=== PATIENT | female | born 1940 | race Two or more races ===

== ENCOUNTER 2017-08-28 14:34 | Emergency (ER) ==
[2017-08-28 14:50] VITALS: BP 141/70; TEMP 97.4; BMI 27.4
--- NOTE | 2017-08-28 15:35 | CT ---
EXAM: CT of the cervical spine without contrast History: Neck trauma. Technique: Multiplanar CT images through the cervical spine were obtained without the administration of IV contrast Findings: The visualized upper lungs are free of consolidation. Atherosclerotic vascular calcificati ons. Mild diffuse thyroid enlargement. No acute fracture or subluxation of the cervical spine. No prevertebral soft tissue swelling. Prede ntal space is not widened. Mild multilevel degenerative disc space narrowing with a few small osteop hytes. Bony spinal canal is not significantly compromised. Impression: No acute osseous abnormality of the cervical spine
--- NOTE | 2017-08-28 15:39 | CT ---
Exam: CT of the maxillofacial bones without intravenous contrast. Comparison: CT brain performed 12/27/2012. Reason for exam: Fall with contusion of the right orbit. FINDINGS: No displaced facial fractures are seen. The frontal, maxillary, and sphenoid sinuses are unopacified. There is minimal mucosal thickening in the ethmoid sinuses. The imaged osseous structu res appear diffusely demineralized. No inflammatory changes are seen in the intra coronal spaces. D egenerative disease is seen in the cervical spine. There is poor dentition with apical capping seen in multiple teeth. Impression: 1. No displaced facial fractures are seen. 2. Poor dentition. 3. Minimal mucosal thickening in the ethmoid sinuses. Report faxed at [phone] hours on 08/28/2017
--- NOTE | 2017-08-28 15:41 | ED.PDOC ---
General ED Provider: Dr. TERE DIOP Chief Complaint: Eye Problem Stated Complaint: RIGHT ORBIT INJURY Time Seen by Physician: 15:00 (FALL THIS AM) Mode of Arrival: Walk-In Information Source: Patient Exam Limitations: No limitations Primary Care Provider: HANS WEEMS Nursing and Triage Documentation Reviewed and Agree: Yes (SEEN WITH KIAH AT ALL TIMES ) Trauma/Injury Complaint Exam - Facial Injury Complaint/Exam Location of Pain: Reports: Right (ORBIT, FACE) Mechanism of Injury: Reports: Trauma (BLUNT FACE ) Onset/Duration: THIS MORNINIG Symptoms Are: Still present Onset of Pain: Reports: Hours Initial Severity: Moderate Current Severity: Moderate Location: Reports: Discrete Character: Reports: Aching Alleviating: Reports: Rest Aggravating: Reports: None Associated Signs and Symptoms: Denies: Swelling, Redness, Bruising, Numbness, Tingling, Fever, Polymyalgia, Weight loss, Visual defects, Tinnitus, Headache, Loss of consciousness Facial Findings: Present: Ecchymosis (SEE PHOTOS), Abrasion Differential Diagnoses: Abrasion (UPPER LID RIGHT) Review of Systems - Review Of Systems Constitutional: Reports: No symptoms Eyes: Reports: Other (ORBITAL CONTUSION) Ears, Nose, Mouth, Throat: Reports: No symptoms Respiratory: Reports: No symptoms Cardiac: Reports: No symptoms GI: Reports: No symptoms : Reports: No symptoms Musculoskeletal: Reports: No symptoms Skin: Reports: No symptoms Neurological: Reports: No symptoms Endocrine: Reports: No symptoms Hematologic/Lymphatic: Reports: No symptoms All Other Systems: Reviewed and Negative Past Medical History - Past Medical History Previously Healthy: No Endocrine: Reports: DM 2 Cardiovascular: Reports: Hypertension Respiratory: Reports: None Hematological: Reports: Anemia Gastrointestinal: Reports: None Genitourinary: Reports: CKD Neuro/Psych: Reports: CVA, Dementia, Parkinson's Musculoskeletal: Reports: Arthritis Cancer: Reports: None Last Menstrual Period: none - Surgical History General Surgical History: Reports: None - Family History Family History: Reports: None - Social History Smoking Status: Never smoker Hx Substance Use: No Alcohol Screening: None - Immunizations Tetanus Shot up to Date: No Physical Exam - Physical Exam Appearance: Well-appearing, No pain distress, Well-nourished Eyes: OLIVIA, EOMI, Conjunctiva clear ENT: Ears normal, Nose normal, Oropharynx normal Respiratory: Airway patent, Breath sounds clear, Breath sounds equal, Respirations nonlabored Cardiovascular: RRR, Pulses normal, No rub, No murmur GI/: Soft, Nontender, No masses, Bowel sounds normal, No Organomegaly Musculoskeletal: Normal strength, ROM intact, No edema, No calf tenderness Skin: Warm, Dry, Normal color Neurological: Sensation intact, Motor intact, Reflexes intact, Cranial nerves intact, Alert, Oriented Psychiatric: Affect appropriate, Mood appropriate Interpretation - Radiology Interpretation Radiology Interpretation By: Radiologist Radiology Results: No acute changes Critical Care Note - Critical Care Note Total Time (mins): 0 Course - Course Orders, Labs, Meds: Orders Category Date Time Status CT CERVICAL SPINE W/O CONTRAST Stat RADS 08/28/17 14:[address] MAXILLOFACIAL W/O CONTRAST Stat RADS 08/28/17 14:38 Taken Vital Signs: Temp Pulse Resp BP Pulse Ox 08/28/17 14:35 97.4 F L 55 L 20 141/70 H 93 L Departure - Departure Time of Disposition: 15:41 Disposition: HOME SELF-CARE Discharge Problem: Facial contusion Qualifiers: Encounter type: initial encounter Qualified Code(s): S00.83XA - Contusion of other part of head, initial encounter Contusion of orbit Qualifiers: Encounter type: initial encounter Laterality: right Qualified Code(s): S05.11XA - Contusion of eyeball and orbital tissues, right eye, initial encounter Abscess of upper eyelid Qualifiers: Laterality: right Qualified Code(s): H00.031 - Abscess of right upper eyelid Instructions: Contusion in Adults (ED), Abrasion (ED) Condition: Good Pt referred to PMD for follow-up: Yes Additional Instructions: Please call your Family Physician as soon as possible to schedule a follow-up appointment. Allergies/Adverse Reactions: Allergies No Known Allergies Allergy (Verified 08/28/17 14:42) Home Medications: Ambulatory Orders Aspirin 81 mg PO BID 08/28/17 Cholecalciferol (Vitamin D3) [Vitamin D] 50,000 unit PO MONTHLY 08/28/17 Duloxetine HCl [Cymbalta] 60 mg PO DAILY 08/28/17 Fluticasone Propionate [Flovent Diskus] 50 mcg IH BID 08/28/17 Hydrocodone Bit/Acetaminophen [[place] 10-325] 1 each PO QID 08/28/17 Insulin Glargine,Hum.rec.anlog [Lantus Solostar] 50 unit SQ DAILY 08/28/17 Insulin Lispro [Humalog Kwikpen] 15 unit SQ BID 08/28/17 Levothyroxine Sodium [Synthroid] 100 mcg PO QDAC 08/28/17 Linagliptin [Tradjenta] 5 mg PO DAILY 08/28/17 Lisinopril [Zestril] 5 mg PO DAILY 08/28/17 Metoprolol Tartrate [Lopressor] 50 mg PO BID 08/28/17 Olanzapine [Zyprexa] 5 mg PO DAILY 08/28/17 Simvastatin [Zocor] 40 mg PO BEDTIME 08/28/17
== END 2017-08-28 15:51 | disposition home or self-care (01) ==
LOC: ED 14:34
DX: S05.11XA Contusion of eyeball and orbital tissues, right eye, initial encounter (principal); S00.83XA Contusion of other part of head, initial encounter; S00.211A Abrasion of right eyelid and periocular area, initial encounter; W22.8XXA Striking against or struck by other objects, initial encounter; W19.XXXA Unspecified fall, initial encounter
CPT/HCPCS: 99283

== ENCOUNTER 2018-06-09 19:42 | Emergency (ER) ==
[2018-06-09 19:55] VITALS: BP 130/76; TEMP 98.7; BMI 26.0
[2018-06-09] MEDS ORDERED: CLEOCIN PO STA (20:13)
[2018-06-09] MEDS ORDERED: PERCOCET 7.5-325 PO STA (20:13)
--- NOTE | 2018-06-09 20:17 | ED.PDOC ---
General ED Provider: Dr. CECILLE MAR Chief Complaint: Tooth Problem Stated Complaint: Patient states that she has been having dental pain for few days unable to find a dentist. She has been on Seguin for back pain which has not helped her dental pain. Time Seen by Physician: 20:16 Mode of Arrival: Walk-In Information Source: Patient Exam Limitations: No limitations Primary Care Provider: HANS WEEMS Nursing and Triage Documentation Reviewed and Agree: Yes Does patient meet sepsis criteria?: No System Inflammatory Response Syndrome: Not Applicable Sepsis Protocol: For patient's 13 years and over: Temp is 96.8 and below OR 101 and greater Pulse >90 BPM Resp >20/minute Acutely Altered Mental Status Are patient's symptoms suggestive of a new infection, such as: -Pneumonia -Skin, Soft Tissue -Endocarditis -UTI -Bone, Joint Infection -Implantable Device -Acute Abdominal Infection -Wound Infection -Meningitis -Blood Stream Catheter Infection -Unknown EENT Complaint Exam - Dental/Oral Complaint/Exam Mechanism of Injury: No known trauma Onset/Duration: weeks Symptoms Are: Still present Timing: Constant Initial Severity: Moderate Current Severity: Severe Location: diffuse Character: Reports: Aching, Throbbing Aggravating: Reports: Heat, Cold, Chewing Alleviating: Reports: None Associated Signs and Symptoms: Reports: Swelling, Discharge, Foul taste in mouth Related History: Reports: Similar episode Cardiac Risk Factors: Reports: None Dental/Oral Surgical History: Reports: None Tooth Findings: Present: Gross decay, Dental fracture, Abcess Cervical Lymphadenopathy Present: No Facial Swelling Present: No Bleeding Present: No Oropharynx Findings: Absent: Clots, Active bleeding Septal Hematoma: No Foreign Body Present: No Dysphagia Present: No Drooling Present: No Asymmetrical Tonsillar Swelling Present: No Uvula Midline: No Saba-tonsillar Fluctuence: No Trismus Present: No Palatal Petechiae Present: No Scarlatinaform Rash Present: No Differential Diagnoses: Dental Abcess, Dental Caries, Fractured Tooth Review of Systems - Review Of Systems Constitutional: Reports: No symptoms Eyes: Reports: No symptoms Ears, Nose, Mouth, Throat: Reports: Mouth pain Respiratory: Reports: No symptoms Cardiac: Reports: No symptoms GI: Reports: No symptoms : Reports: No symptoms Musculoskeletal: Reports: No symptoms Skin: Reports: No symptoms Neurological: Reports: No symptoms Endocrine: Reports: No symptoms Hematologic/Lymphatic: Reports: No symptoms All Other Systems: Reviewed and Negative Past Medical History - Past Medical History Previously Healthy: No Endocrine: Reports: DM 2 Cardiovascular: Reports: Hypertension Respiratory: Reports: None Hematological: Reports: Anemia Gastrointestinal: Reports: None Genitourinary: Reports: CKD Neuro/Psych: Reports: CVA, Dementia, Parkinson's Musculoskeletal: Reports: Arthritis Cancer: Reports: None Last Menstrual Period: menopausal - when she was in late 50's - Surgical History General Surgical History: Reports: None - Family History Family History: Reports: None - Social History Smoking Status: Never smoker Hx Substance Use: No Alcohol Screening: None - Immunizations Tetanus Shot up to Date: No Physical Exam - Physical Exam Appearance: Ill-appearing Pain Distress: Moderate Eyes: OLIVIA, EOMI ENT: Nose normal Neck: Supple Respiratory: Airway patent, Breath sounds clear, Breath sounds equal, Respirations nonlabored Cardiovascular: RRR Musculoskeletal: Normal strength, ROM intact, No edema, No calf tenderness Critical Care Note - Critical Care Note Total Time (mins): 0 Course - Course Orders, Labs, Meds: Orders Category Date Time Status Clindamycin HCl [Cleocin] MEDS 06/09/18 20:13 Stat 300 mg PO ONCE STA Oxycodone-Acetaminophe 7.5-325 [Percocet 7.5-325] MEDS 06/09/18 20:13 Stat 1 tab PO ONCE STA Medications Discontinued Medications Generic Name Dose Route Start Last Admin Trade Name Arminda PRN Reason Stop Dose Admin Clindamycin HCl 300 mg 06/09/18 20:13 Cleocin PO 06/09/18 20:14 ONCE STA Oxycodone/Acetaminophen 1 tab 06/09/18 20:13 Percocet 7.5-325 PO 06/09/18 20:14 ONCE STA Vital Signs: Temp Pulse Resp BP Pulse Ox 06/09/18 19:43 98.7 F 58 L 20 130/76 97 Departure - Departure Time of Disposition: 20:44 Disposition: HOME SELF-CARE Discharge Problem: Toothache, Dental abscess Instructions: Dental Abscess (ED) Condition: Fair Pt referred to PMD for follow-up: Yes IPMP verified?: No Additional Instructions: Find a dentist take medications as prescribed Follow up with PCP if not better. Allergies/Adverse Reactions: Allergies Penicillins Adverse Reaction (Verified 06/09/18 19:55) Disposition Discussed With: Patient, Family
== END 2018-06-09 20:54 | disposition home or self-care (01) ==
LOC: ED 19:42
DX: K08.89 Other specified disorders of teeth and supporting structures (principal); K04.7 Periapical abscess without sinus
CPT/HCPCS: 99282

== ENCOUNTER 2018-06-12 11:52 | Emergency (ER) ==
[2018-06-12] MEDS: EPINEPHRINE 1:10,000 SYRINGE IV PRN (11:53)
[2018-06-12] MEDS ORDERED: ATROPINE SULFATE PFS IVP PRN (11:57)
[2018-06-12 12:03] VITALS: TEMP 100.1; BMI 29.9
[2018-06-12] MEDS: SODIUM BICARBONATE 7.5% IVP PRN (12:10)
[2018-06-12] MEDS: DOPAMINE 400 MG in PREMIX 250 ML D5W 1 BAG IV SCH (12:18)
--- NOTE | 2018-06-12 12:29 | DI ---
Exam: Single view of the chest. Comparison: 08/22/2012. Reason for exam: Intubation. FINDINGS: Endotracheal tube is seen with the tip in the right mainstem bronchus. No pneumothorax, p leural effusion, or focal consolidation. Recommend withdrawing the tip approximately 3 cm. No pneumo thorax, pleural effusion, or focal consolidation. The cardiac silhouette is unchanged. Impression: 1. Right mainstem intubation. Recommend withdrawing the endotracheal tube approximately 3 cm. 2. No pleural effusion, focal consolidation or pneumothorax. Findings were discussed directly with the ordering physician at 1225 hours on 06/12/2018.
--- NOTE | 2018-06-12 12:47 | ED.PDOC ---
General ED Provider: Dr. HANS SANTOS Chief Complaint: Cardiac Arrest Stated Complaint: Had gurgling respirations at home. Daughter in Law attempted to adjust her position, she became pale, then had respiratory arrest. CPR initiated and 911 called. Upon arrival here CPR in progress Time Seen by Physician: 11:52 Mode of Arrival: Ambulance Information Source: Family, EMT Exam Limitations: Clinical condition Primary Care Provider: HANS WEEMS Nursing and Triage Documentation Reviewed and Agree: Yes Does patient meet sepsis criteria?: No System Inflammatory Response Syndrome: Not Applicable Sepsis Protocol: For patient's 13 years and over: Temp is 96.8 and below OR 101 and greater Pulse >90 BPM Resp >20/minute Acutely Altered Mental Status Are patient's symptoms suggestive of a new infection, such as: -Pneumonia -Skin, Soft Tissue -Endocarditis -UTI -Bone, Joint Infection -Implantable Device -Acute Abdominal Infection -Wound Infection -Meningitis -Blood Stream Catheter Infection -Unknown Cardiac Resuscitation - Cardiac Resuscitation/Physical Exam Onset/Duration: Minutes Witnessed Arrest: Yes Down-time Before BLS Initiated: <1 min Down-time Before ALS Initiated: <10 min Airway Prehospital Findings: Reports: Patent Breathing Prehospital Findings: Reports: Apnea, Respiratory distress Circulation/Rhythm Prehospital Findings: Reports: Pulses absent Disability/Neurological Prehospital Findings: Reports: Unresponsive Airway Prehospital Intervention: Reports: Jaw thrust, Oral airway Breathing Prehospital Intervention: Reports: Bag-valve mask, Intubation Circulation/Rhythm Prehospital Intervention: Reports: Chest compressions, IV/IO placed, Epinephrine Airway Prehospital Response: None/PEA Breathing Prehospital Response: Present: ETT in airway Circulation/Rhythm Prehospital Response: Present: PEA Total Down Time FRANCHISE BUSINESS CONSULTANT: 20 min Airway ED Findings: Patent Breathing ED Findings: Present: Rales, Breath sounds equal Circulation/Rhythm ED Findings: Present: Pulses absent Breathing ED Intervention: Bag-valve mask, ETT repositioned, Intubated by Other Circulation/Rhythm ED Intervention: Chest compressions, IV/IO placed, Epinephrine Breathing ED Response: ETT in airway, Confirmed by auscultation Circulation/Rhythm ED Response: Present: Pulses present, Sinus Tachycardia Right Pupil: Fixed Left Pupil: Fixed Review Of Systems: Unable due to extremis EMS/Code Sheet Reviewed: Yes Patient is a DNR: No Patient Has a Living Will: No Resuscitation Successful: Yes Past Medical History - Past Medical History Previously Healthy: No Endocrine: Reports: DM 2 Cardiovascular: Reports: Hypertension Respiratory: Reports: None Hematological: Reports: Anemia Gastrointestinal: Reports: None Genitourinary: Reports: CKD Neuro/Psych: Reports: CVA, Dementia, Parkinson's Musculoskeletal: Reports: Arthritis Cancer: Reports: None Last Menstrual Period: NA - Surgical History General Surgical History: Reports: None - Family History Family History: Reports: None - Social History Smoking Status: Never smoker Hx Substance Use: No Alcohol Screening: None Interpretation - Radiology Interpretation Radiology Interpretation By: Radiologist Exam Interpreted: Portable CXR Xray Comments: X 3/ see written interpretation Radiology Interpretation By: Radiologist - Librarian Special Library Rhythm: Other (PEA) - EKG Interpretation Time of EKG #1: 11:58 Rate: Tachy ST Segment: Other (Ant lateral ischemia) Re-Evaluation - Re-Evaluation Time of Re-Evaluation: 12:45 Status: Improved Vital Signs Stable: No (Improved on Dopamine) Lungs: Other (coarse rales and rhonchi) Neuro: Other (Unreponsive/pupils fixed and dilated) CV: Other (tachycardia) Critical Care Note - Critical Care Note Total Time (mins): 90 Course - Course Hematology/Chemistry: 06/12/18 12:25 06/12/18 12:25 Orders, Labs, Meds: Lab Review 06/12/18 06/12/18 06/12/18 12:12 12:25 12:25 WBC 11.02 H RBC 3.01 L Hgb 8.4 L Hct 27.0 L MCV 89.7 MCH 27.9 MCHC 31.1 L RDW Coeff of Alexsander 13.2 Plt Count 132 L Immature Gran % (Auto) 1.5 Neut % (Auto) 63.1 Lymph % (Auto) 26.5 Morrison % (Auto) 4.9 Eos % (Auto) 3.6 Baso % (Auto) 0.4 Immature Gran # (Auto) 0.2 Neut # (Auto) 7.0 H Lymph # (Auto) 2.9 Morrison # (Auto) 0.5 Eos # (Auto) 0.4 Baso # (Auto) 0.0 Puncture Site R rad O2 Saturation 100.0 ABG pH 7.016 L* ABG pCO2 62.7 H ABG pO2 309.0 H ABG HCO3 16.0 L ABG Total CO2 18 L ABG Base Excess -15 L Shay Test + O2 Delivery Device bagged FiO2 % 100.0 Sodium 137.6 Potassium 3.89 Chloride 104.4 Carbon Dioxide 17.6 L Anion Gap 19.49 BUN 21.8 H Creatinine 1.93 H Estimated GFR (MDRD) 25.00 BUN/Creatinine Ratio 11.29 Glucose 459.4 H Lactic Acid Calcium 6.96 L Total Bilirubin 0.42 AST 81.7 H ALT 46.6 H Alkaline Phosphatase 119.6 Total Creatine Kinase 545.5 H CK-MB (CK-2) 2.140 CK-MB (CK-2) % 0.3900 Troponin I < 0.012 Total Protein 5.70 L Albumin 2.85 L Globulin 2.85 Albumin/Globulin Ratio 1.00 06/12/18 06/12/18 12:25 12:45 WBC RBC Hgb Hct MCV MCH MCHC RDW Coeff of Alexsander Plt Count Immature Gran % (Auto) Neut % (Auto) Lymph % (Auto) Morrison % (Auto) Eos % (Auto) Baso % (Auto) Immature Gran # (Auto) Neut # (Auto) Lymph # (Auto) Morrison # (Auto) Eos # (Auto) Baso # (Auto) Puncture Site R brach O2 Saturation 92.0 L ABG pH 7.155 L* ABG pCO2 47.2 H ABG pO2 83.0 L ABG HCO3 16.6 L ABG Total CO2 18 L ABG Base Excess -12 L Shay Test + O2 Delivery Device Vent FiO2 % 60.0 Sodium Potassium Chloride Carbon Dioxide Anion Gap BUN Creatinine Estimated GFR (MDRD) BUN/Creatinine Ratio Glucose Lactic Acid 9.12 H Calcium Total Bilirubin AST ALT Alkaline Phosphatase Total Creatine Kinase CK-MB (CK-2) CK-MB (CK-2) % Troponin I Total Protein Albumin Globulin Albumin/Globulin Ratio Orders Category Date Time Status ABG DRAW REQUEST Stat CARDIO 06/12/18 12:12 Ordered ABG DRAW REQUEST Stat CARDIO 06/12/18 12:33 Ordered CPR - ED ONLY Stat CARDIO 06/12/18 11:57 Ordered EKG-(ED ONLY) Stat CARDIO 06/12/18 11:58 Ordered ED CAN INTAKE WORKER APPLIED .ONCE EMERGENCY 06/12/18 11:57 Active ED DEFIBRILLATE PATIENT PRN EMERGENCY 06/12/18 11:57 Active ED IV/MEDIPORT/POWERPORT .ONCE EMERGENCY 06/12/18 11:57 Active Brandon [ED CATHETER INSERTION AND CARE] .ONCE EMERGENCY 06/12/18 13:10 Active ARTERIAL BLOOD GAS [ABG] Stat LAB 06/12/18 12:12 Completed ARTERIAL BLOOD GAS [ABG] Stat LAB 06/12/18 12:25 Completed CBC W/ AUTO DIFF Stat LAB 06/12/18 12:25 Completed COMPREHENSIVE METABOLIC PANEL Stat LAB 06/12/18 12:25 Received CREATINE KINASE Stat LAB 06/12/18 12:25 Received LACTIC ACID Stat LAB 06/12/18 12:33 Ordered PROCALCITONIN Stat LAB 06/12/18 Ordered TROPONIN I Stat LAB 06/12/18 12:25 Received URINE Stat LAB 06/12/18 13:10 Uncollected 0.9 % Sodium Chloride [Saline Flush] MEDS 06/12/18 11:57 Active 1 syr IVF PRN PRN Atropine Sulfate Inj [Atropine Sulfate Pfs] MEDS 06/12/18 11:57 Active 1 mg IVP PRN PRN Ceftriaxone Sodium [Rocephin] MEDS 06/12/18 12:50 Discontinued 1 gm .ROUTE .STK-MED ONE Ceftriaxone Sodium [Rocephin] 1 gm MEDS 06/12/18 12:43 Ordered 0.9 % Sodium Chloride [Sodium Chloride] 50 ml IV ONCE Epinephrine [Epinephrine 1:10,000 Syringe] MEDS 06/12/18 11:57 Active 1 mg IV PRN PRN Premix 250 ml D5w 1 bag MEDS 06/12/18 12:30 Ordered Dopamine HCl/D5w [Dopamine] 400 mg IV 10 mcg/kg/min Sodium Bicarb 7.5% [Sodium Bicarbonate 7.5%] MEDS 06/12/18 11:57 Active 44.6 meq IVP PRN PRN CHEST, 1V AP ONLY Stat RADS 06/12/18 11:58 Completed CHEST, 1V AP ONLY Stat RADS 06/12/18 12:32 Ordered Medications Generic Name Dose Route Start Last Admin Trade Name Freq PRN Reason Stop Dose Admin Atropine Sulfate 1 mg 06/12/18 11:57 Atropine Sulfate Pfs IVP PRN PRN DIRECTED BY PHYSICIAN-CODE Epinephrine HCl 1 mg 06/12/18 11:57 06/12/18 11:53 Epinephrine 1:10,000 Syringe IV 1 mg PRN PRN Administration DIRECTED BY PHYSICIAN-CODE Dopamine HCl/Dextrose 400 mg/ 250 mls @ 27.82 mls/hr 06/12/18 12:30 06/12/18 13:02 Dextrose IV 2 mcg/kg/min .Q9H MARISELA 5.56 mls/hr Titration Protocol 10 MCG/KG/MIN Ceftriaxone Sodium 1 gm/ 50 mls @ 75 mls/hr 06/12/18 12:43 06/12/18 12:59 Sodium Chloride IV 06/12/18 13:22 75 mls/hr ONCE STA Administration Sodium Bicarbonate 44.6 meq 06/12/18 11:57 06/12/18 12:10 Sodium Bicarbonate 7.5% IVP 44.6 meq PRN PRN Administration DIRECTED BY PHYSICIAN-CODE Sodium Chloride 1 syr 06/12/18 11:57 Saline Flush IVF PRN PRN To flush IV Vital Signs: Temp Pulse Resp BP Pulse Ox 06/12/18 13:02 168 H 128/81 06/12/18 12:54 169 H 128/81 06/12/18 12:50 173 H 118/79 06/12/18 12:30 176 H 104/66 06/12/18 12:18 124 H 48/31 L 06/12/18 12:15 16 06/12/18 12:11 156 H 20 62/39 L 100 06/12/18 11:52 100.1 F H 0 L 0 L 0/0 L 0 L Departure - Departure Time of Disposition: 13:15 Disposition: TSF SHORT-TRM HOSP Discharge Problem: Cardiopulmonary arrest with successful resuscitation Condition: Critical Pt referred to PMD for follow-up: Yes (AFTER HOSPITALIZATION ) IPMP verified?: No Allergies/Adverse Reactions: Allergies Penicillins Adverse Reaction (Verified 06/09/18 19:55) Home Medications: Ambulatory Orders Aspirin 81 mg PO BID 08/28/17 Cholecalciferol (Vitamin D3) [Vitamin D] 50,000 unit PO MONTHLY 08/28/17 Duloxetine HCl [Cymbalta] 60 mg PO DAILY 08/28/17 Fluticasone Propionate [Flovent Diskus] 50 mcg IH BID 08/28/17 Hydrocodone Bit/Acetaminophen [[place] 10-325] 1 each PO QID 08/28/17 Hydrocodone/Acetaminophen [[place] 10-325 Tablet] 1 each PO Q8HR #12 tablet Insulin Glargine,Hum.rec.anlog [Lantus Solostar] 50 unit SQ DAILY 08/28/17 Insulin Lispro [Humalog Kwikpen] 15 unit SQ BID 08/28/17 Levothyroxine Sodium [Synthroid] 100 mcg PO QDAC 08/28/17 Linagliptin [Tradjenta] 5 mg PO DAILY 08/28/17 Lisinopril [Zestril] 5 mg PO DAILY 08/28/17 Metoprolol Tartrate [Lopressor] 50 mg PO BID 08/28/17 Olanzapine [Zyprexa] 5 mg PO DAILY 08/28/17 Simvastatin [Zocor] 40 mg PO BEDTIME 08/28/17 Clindamycin HCl 300 mg PO TID #30 capsule 06/09/18 Transfer Form Completed: Yes
--- NOTE | 2018-06-12 12:57 | DI ---
EXAM: Chest one view HISTORY: Intubation COMPARISON: 06/12/2018 TECHNIQUE: Single view of the chest was performed FINDINGS: Endotracheal tube has been retracted and terminates approximately 5 cm above the zachariah. L bilateral interstitial opacity. There is no pleural effusion or pneumothorax. The heart is normal in size. The mediastinal contour is unchanged, noting atherosclerosis. There are no acute abnormal ities of the bones. IMPRESSION: 1. Endotracheal tube has been retracted and terminates approximately 5 cm above the zachariah. 2. Bilateral interstitial opacity, may represent edema versus less likely pneumonia/pneumonitis.
[2018-06-12] MEDS: ROCEPHIN 1 GM in SODIUM CHLORIDE 50 ML IV STA (12:59)
[2018-06-12] MEDS: ROCEPHIN ONE (13:00)
[2018-06-12 13:16] VITALS: BP 125/72
== END 2018-06-12 13:47 | disposition short-term general hospital (02) ==
LOC: ED 11:52
DX: I46.9 Cardiac arrest, cause unspecified (principal); E11.9 Type 2 diabetes mellitus without complications; I10 Essential (primary) hypertension; N18.9 Chronic kidney disease, unspecified; D63.1 Anemia in chronic kidney disease; G20 Parkinson's disease; F02.80 Dementia in other diseases classified elsewhere, unspecified severity, without behavioral disturbance, psychotic disturbance, mood disturbance, and anxiety; Z86.73 Personal history of transient ischemic attack (TIA), and cerebral infarction without residual deficits; Z79.899 Other long term (current) drug therapy; Z79.4 Long term (current) use of insulin
CPT/HCPCS: 36415; 80053; 82550; 82553; 82803; 82962; 83605; 84145; 84484; 85025; 93005; 93010; 94002; 96361; 96365; 96368; 96375; 99291; 99292